=== PATIENT | male | born 1980 | race Two or more races ===

== ENCOUNTER 2017-06-13 09:18 | Emergency (ER) | payer BC, MEDICAID ==
[~2017-06-13] VITALS: Ht 167.6 cm; Wt 78.9 kg
[~2017-06-13 09:18] MED LIST: MARIJUANA; [UNRECOGNIZED DRUG - OTHER]
[2017-06-13 09:32] VITALS: BP 121/83
== END 2017-06-13 11:41 | disposition home or self-care (01) ==
LOC: ER 09:18
DX: L02.214 Cutaneous abscess of groin (principal); E78.5 Hyperlipidemia, unspecified
CPT/HCPCS: 76705